=== PATIENT | female | born 1945 | race Caucasian/White ===

== ENCOUNTER 2018-02-28 22:04 | Outpatient (CLI) | payer MEDICARE | END 2018-02-28 22:05 | disposition critical access hospital (66) | LOC: EMS 22:04 | PROVIDERS: ATTEND Surgery | DX: M79.621 Pain in right upper arm (principal); M79.604 Pain in right leg; W18.39XA Other fall on same level, initial encounter; Y92.59 Other trade areas as the place of occurrence of the external cause | CPT/HCPCS: A0425; A0429 ==

== ENCOUNTER 2018-02-28 22:29 | Emergency (ER) | payer MEDICARE ==
--- NOTE | 2018-03-01 00:04 | XRAY Report ---
Procedure Date: 02/28/2018 Accession Number: [id number] / [id number] Procedure: XR - Humerus RT CPT Code: FULL RESULT: EXAM: RIGHT HUMERUS RADIOGRAPHY EXAM DATE: 02/28/2018 11:47 PM. CLINICAL HISTORY: Fall onto right side, etoh on board. COMPARISON: None. TECHNIQUE: 2 views. FINDINGS: Bones: There is a transverse fracture through the surgical neck of the humerus with mild displacement and impaction of fracture fragments. Joints: Normal. No effusions or subluxations in the visualized shoulder or elbow joints. Soft Tissues: Normal. No soft tissue swelling. IMPRESSION: Mildly displaced and impacted fracture through surgical neck of humerus. [facility]
--- NOTE | 2018-03-01 00:15 | CT Report ---
Procedure Date: 02/28/2018 Accession Number: [id number] / [id number] Procedure: CT - Head W/O CPT Code: FULL RESULT: EXAM: CT HEAD EXAM DATE: 02/28/2018 11:49 PM. CLINICAL HISTORY: Fall onto right side, alcohol use. COMPARISON: None. TECHNIQUE: Multiaxial CT images were obtained from the foramen magnum to the vertex. Reformats: Coronal. IV contrast: None. In accordance with CT protocol optimization, one or more of the following dose reduction techniques were utilized for this exam: automated exposure control, adjustment of mA and/or KV based on patient size, or use of iterative reconstructive technique. FINDINGS: Parenchyma: No intraparenchymal hemorrhage. No evidence of mass, midline shift, or CT findings of infarction. There are areas of low-density involving white matter bilateral cerebral hemispheres. Extraaxial Spaces: Normal for age. No subdural or epidural collections identified. Ventricles: Normal in size and position. Sinuses and Orbits: Imaged paranasal sinuses, orbits, and mastoids show no significant abnormality. Bones: No evidence of fracture or calvarial defect. Other: None. IMPRESSION: No acute intracranial process. [facility]
--- NOTE | 2018-03-01 00:20 | CT Report ---
Procedure Date: 02/28/2018 Accession Number: [id number] / [id number] Procedure: CT - Cervical Spine W/O CPT Code: FULL RESULT: EXAM: CT CERVICAL SPINE WITHOUT CONTRAST DATE: 02/28/2018 11:48 PM. HISTORY: Fall onto right side, alcohol use. COMPARISONS: None. TECHNIQUE: Thin-section axial images were acquired of the cervical spine without contrast. Post-processing: Coronal and sagittal reformats. Other: None. In accordance with CT protocol optimization, one or more of the following dose reduction techniques were utilized for this exam: automated exposure control, adjustment of mA and/or KV based on patient size, or use of iterative reconstructive technique. FINDINGS: Alignment: 2 mm anterolisthesis of C2 on C3. Bones: No fracture or bone lesion. Interspace Levels/Facets: C1-C2: Unremarkable. C2-C3: 2 mm and retrolisthesis of C2 on C3. C3-C4: Disk height loss. Mild bilateral neural foraminal narrowing. C4-C5: Disk height loss and endplate degenerative changes. Moderate left and mild right neural foraminal narrowing. C5-C6: Disk height loss. Discussed by complex with mild central phalanx. Mild left neural foraminal narrowing. C6-C7: Mild bilateral neural foraminal narrowing. C7-T1: Unremarkable. Musculature: Normal. No fatty atrophy. Other: There are prominent degenerative changes of the temporomandibular joints. The paravertebral and prevertebral soft tissues are unremarkable. The lung apices are clear. IMPRESSION: No evidence of cervical spine fracture. [facility]
[2018-03-01] MEDS ORDERED: oxyCOD/ACETAMIN 5 MG/325 MG TABLET PO STA ×3 (00:54→02:17)
--- NOTE | 2018-03-01 01:10 | ED Physician Documentation ---
PD HPI Fall - Stated complaint Stated Complaint: GLF, ETOH - Chief complaint Chief Complaint: General - History obtained from History obtained from: Patient, EMS - History of Present Illness Mechanism of injury: Slipped Fall distance: Standing position Where injury occurred: Home Timing - onset: Today Injury(ies) location: Right Upper Extremity Quality of pain: Pain Associated symptoms: No: LOC, AMS Contributing factors: Intoxicated. No: Anticoagulated Recently seen: Not recently seen - Additional information Additional information: Patient is a 72 year old female presenting to the emergency department after falling. patient was intoxicated and tripped landing on her right side. patient denies any loc but is intoxicated. patient is only complaining of right upper extremity pain. Review of Systems Unable to obtain: Intoxicated PD PAST MEDICAL HISTORY - Past Medical History Past Medical History: Yes - Present Medications Home Medications: Ambulatory Orders Medication Instructions Recorded Confirmed Oxycodone HCl/Acetaminophen 1 - 2 each PO Q6H PRN #10 tablet 03/01/18 [Percocet 5-325 mg Tablet] - Allergies Allergies/Adverse Reactions: Allergies Allergy/AdvReac Type Severity Reaction Status Date / Time No Known Drug Allergies Allergy Verified 02/28/18 22:35 - Social History Does the pt smoke?: No Smoking Status: Never smoker PD ED PE NORMAL - Vitals Vital signs reviewed: Yes - HEENT HEENT: Atraumatic - Cardiac Cardiac: RRR - Respiratory Respiratory: No respiratory distress - Abdomen Abdomen: Soft, Non tender, Non distended PD ED PE EXPANDED - General General: Alert, Other (mildly intoxicated) - Cardiac Cardiac: Radial strong equal - Extremities Extremities: Right shoulder, Right arm (tenderness to right upper extremity), Right elbow (skin tear), Sensory intact, Vascular intact, Tendon intact Results - Vitals Vitals: Vital Signs - 24 hr 02/28/18 22:33 Temperature 36.8 C Heart Rate 85 Respiratory 20 Rate Blood Pressure 134/91 H O2 Saturation 100 Oxygen O2 Source Room air - Rads (name of study) ct head Radiology: Final report received (no acute abnormality) ct cervical spine Radiology: Final report received (no acute fracture or dislocation) humerus Radiology: Final report received (proximal humerus fracture) PD MEDICAL DECISION MAKING - ED course Complexity details: reviewed old records, reviewed results, re-evaluated patient , considered differential, d/w patient, d/w family ED course: patient was seen and examined at bedside. patient was intoxicated so could not be clinically cleared. Patient was sent for imaging. when patient returned the results were reviewed. Patient was found to have a humerus fracture. Patient was placed in a posterior splint and a sling. Patient had could distal pulses and was neurovascularly intact. patient required no further work up at this time and was stable for discharge with outpatient follow up. - Sepsis Event Vital Signs: Vital Signs - 24 hr 02/28/18 22:33 Temperature 36.8 C Heart Rate 85 Respiratory 20 Rate Blood Pressure 134/91 H O2 Saturation 100 Oxygen O2 Source Room air Departure - Departure Disposition: Home, Self Care Clinical Impression: Humerus fracture Condition: Good Instructions: ED Fx Upper Ext Follow-Up: Agus Rey MD [Provider Admit Priv/Credential] - Tomorrow Prescriptions: Oxycodone HCl/Acetaminophen [Percocet 5-325 mg Tablet] 1 - 2 each PO Q6H PRN # 10 tablet PRN Reason: pain Comments: Your symptoms today are being caused by an arm fracture. It was placed in a splint but you will need to follow up with the orthopedic surgeon for more definitive care. you should ice your arm and try to sleep with it elevated. You can take tylenol for pain, and an occasional percocet for breakthrough pain. You cannot take the percocet with alcohol or other sedatives. you should return to the emergency department for loss of pulses, severe swelling, new worsening or uncontrollable symptoms.
[2018-03-01] MEDS ORDERED: BACITRACIN OINT TOP ONE (01:29)
--- NOTE | 2018-03-01 03:36 | XRAY Report ---
Procedure Date: 03/01/2018 Accession Number: [id number] / [id number] Procedure: XR - Hip w/Pelvis 2-3V RT CPT Code: FULL RESULT: EXAM: RIGHT HIP AND PELVIS RADIOGRAPHY EXAM DATE: 03/01/2018 02:42 AM. HISTORY: Fall, right side, hip pain, prior surgery. COMPARISONS: None. TECHNIQUE: 1 view of the pelvis and 1 view of the hip. FINDINGS: Bones: Subacute to chronic fractures are seen through the medial aspects of the superior and inferior pubic rami in near anatomic alignment. No acute fracture is seen. A femoral intramedullary nail and femoral neck compression screw are present. The more proximal locking screw in the distal femur is fractured. Joints: The bilateral hip, pubis symphysis, and sacroiliac joints are preserved. Soft Tissues: Normal. No soft tissue swelling. Some heterotopic ossification is seen around the right hip. IMPRESSION: 1. Subacute to chronic fractures through the medial aspect of the superior and inferior pubic rami. 2. No evidence of acute osseous abnormality. 3. Heterotopic ossification around the right hip. [facility]
[2018-03-01 04:05] VITALS: BP 136/72
== END 2018-03-01 03:50 | disposition home or self-care (01) ==
LOC: ED 22:29
DX: S42.211A Unspecified displaced fracture of surgical neck of right humerus, initial encounter for closed fracture (principal); S51.011A Laceration without foreign body of right elbow, initial encounter; W01.0XXA Fall on same level from slipping, tripping and stumbling without subsequent striking against object, initial encounter; Y92.009 Unspecified place in unspecified non-institutional (private) residence as the place of occurrence of the external cause; F10.129 Alcohol abuse with intoxication, unspecified
CPT/HCPCS: 70450; 72125; 73060; 73502; 99283; 99284; A9270